=== PATIENT | male | born 1955 | race Caucasian/White ===

== ENCOUNTER 2020-05-22 11:43 | Inpatient (IN) | payer BC ==
[~2020-05-22 11:43] MED LIST: Iopamidol-370 76% 500 ML 1 ML ONE
[2020-05-22] MEDS ORDERED: Dexamethasone 4 mg/ml Vial ONE (11:56)
[2020-05-22] MEDS ORDERED: Aspirin Chewable 81 MG TAB ONE (11:56)
[2020-05-22] MEDS ORDERED: Ondansetron PF 4 MG/2 ML Vial IVP PRN ×2 (12:00→15:07)
[2020-05-22] MEDS ORDERED: Sodium Chloride 0.9% 1,000 ML IV SCH (12:00)
[2020-05-22] MEDS ORDERED: Ondansetron ODT 4 MG TAB SL PRN (12:00)
--- NOTE | 2020-05-22 12:22 | RAD ---
EXAM: CHEST ONE VIEW HISTORY: Covid positive. Shortness of breath. COMPARISON: 03/27/2012 FINDINGS: Cardiac silhouette is magnified by projection. There are parenchymal airspace opacities seen througho ut the lungs bilaterally greater on the right in a pattern most compatible with Covid pneumonia. No pleural effusion is seen. Mild degenerative changes are present in the spine similar to prior study. IMPRESSION: Covid pneumonia.
[2020-05-22 12:33] LABS: ALT (SGPT) 39 U/L (8-55); AST (SGOT) 29 U/L (5-34); Alkaline Phosphatase 92 U/L (40-110); Anion Gap 17 mmol/L (10-20); BUN (Urea Nitrogen) 15 mg/dL (8.4-25.7); Bilirubin, Total 0.6 mg/dL (0.2-1.2); CK (CPK) 42 U/L (30-200); Calc. Creatinine Clearance 0 mL/min (70-130); Calcium 8.3 mg/dL (7.8-10.44); Carbon Dioxide 23 mmol/L (23-31); Chloride 105 mmol/L (98-107); Globulin 3.5 g/dL (2.4-3.5); Glucose 128 mg/dL (80-115); Lipase 30 U/L (8-78); Potassium 3.5 mmol/L (3.5-5.1); Protein, Total 6.5 g/dL (5.8-8.1); Sodium 141 mmol/L (136-145)
[2020-05-22 12:41] LABS: #Eosinphils 0.4 thou/uL (0.0-0.7); #Lymphocytes 1.5 thou/uL (1.20-3.40); #Monocytes 0.6 thou/uL (0.11-0.59); #Neutrophils 7.8 thou/uL (1.40-6.50); %Eosinophils 3.4 % (0.0-10.0); %Lymphocytes 14.6 % (21.0-51.0); %Neutrophils 75.9 % (42.0-75.0); Hemoglobin 13.8 g/dL (14.0-18.0); Mean Corpuscular HGB CONC 33.8 g/dL (32.0-36.0); Mean Corpuscular Hemoglobin 29.9 pg (27.0-31.0); Mean Corpuscular Volume 88.4 fL (78.0-98.0); Mean Platelet Volume 6.2 fL (7.4-10.4); Platelet Count 398 thou/uL (130-400); RBC Distribution Width 12.2 % (11.5-14.5); Red Blood Cell (RBC) Count 4.61 mill/uL (4.70-6.10); White Blood Cell (WBC) Count 10.2 thou/uL (4.8-10.8)
[2020-05-22] MEDS ORDERED: cefTRIAXone\\ROCEPHIN 2 GM VIAL ONE (12:59)
--- NOTE | 2020-05-22 13:24 | CT ---
Exam: CT angiogram of the chest HISTORY: COVID positive patient. Shortness of breath. COMPARISON: None TECHNIQUE: CT angiogram of the chest is performed in the axial plane. Three-dimensional reformatted i mages are submitted for interpretation FINDINGS: Mediastinum: No mass, lymphadenopathy or hematoma. HEART: Normal size. No significant pericardial fluid. Aorta: No aneurysm or dissection Upper solid abdominal viscera: No abnormality enhancement. Trachea and central bronchi: Patent Pleural spaces: No effusion Lung parenchyma: Peripheral groundglass opacities, in keeping with patient's positive COVID status. M ulti lobar COVID pneumonia. Pneumothorax: None Osseous structures: No lytic or blastic lesions Pulmonary arteries: Adequate contrast opacification pulmonary arterial system to the level of lobar a rteries. Evaluation the segmental and subsegmental arteries limited due to patient motion. No filling defect to suggest pulmonary embolism IMPRESSION: 1. Multi lobar COVID pneumonia 2. No evidence of pulmonary artery embolism to the level of the lobar arteries.
--- NOTE | 2020-05-22 13:25 | PDOC.HHP ---
Hospitalist HPI - History of Present Illness Shortness of breath History of Present Illness: Patient reports that his symptoms started on May 11, initially he was having congestion in his chest and nose, he also lost taste and smell sensation, he did not have any sore throat, he did not have any significant runny nose, he had subsequently fever which lasted for couple of days only, he did COVID-19 test on May 14 which came back positive, he was taking vitamin supplementation and symptomatic treatment, for last 2 to 3 days his symptoms gotten worse with increasing shortness of breath and cough, he decided to come to emergency room because he was not feeling good, when he arrived to emergency room he was hypoxic with a saturation of 85%, he was tachypneic and tachycardic, he had elevated D-dimer and that is why CT angio was done which was negative, patient was requiring high flow oxygen. ED Course: VITAL SIGNS MonMay 22, 2020 11:44 KATHY Castañeda Denna BP: 122/74, Pulse: 117, Resp: 26, O2 sat: 85 on (Room Air), Time: 05/22/2020 11:44. VITAL SIGNS MonMay 22, 2020 12:20 Jase, RESP., Aliyah O2 sat: 98, Time: 05/22/2020 12:20. Rocephin 2 g, azithromycin 500 mg, Lovenox 1 mg/kg, aspirin 324 mg, dexamethasone 10 mg, IV fluid 1 LPatient has received Hospitalist ROS - Review of Systems Constitutional: reports: fever, chills, weakness, malaise Eyes: denies: pain, vision change, conjunctivae inflammation, eyelid inflammation, redness, other ENT: reports: nose congestion. denies: ear pain, ear discharge, nose pain, nose discharge, mouth pain, mouth swelling, throat pain, throat swelling, other Respiratory: reports: cough, shortness of breath, SOB with excertion Cardiovascular: denies: chest pain, palpitations, orthopnea, paroxysmal noc. dyspnea, edema, light headedness, other Gastrointestinal: denies: nausea, vomiting, abdominal pain, diarrhea, constipation, melena, hematochezia, other Genitourinary: denies: dysuria, frequency, incontinence, hematuria, retention, other Musculoskeletal: denies: neck pain, shoulder pain, arm pain, back pain, hand pain, leg pain, foot pain, other Skin: denies: rash, lesions, sina, bruising, other Neurological: denies: weakness, numbness, incoordination, change in speech, confusion, seizures, other - Medication Medications: Resuscitation Status - Order Detail: 05/22/20 13:16 Resuscitation Status Routine Resuscitation Status: FULL: Full Resuscitation Allergy-no known drug allergy Home medication-patient is not able to recall name of medication, will review later Hospitalist History - Past Medical History Other Medical History: Hyperlipidemia - Past Surgical History Other Surgical History: Appendicectomy Esophageal dilatation for esophageal stricture Past psychiatric history reviewed and negative - Family History Other Family History: No strong family history of premature coronary artery disease stroke or cancer - Social History Other Social History: Patient lives at home, no smoking, occasional alcohol, no drug abuse - Exam General Appearance: NAD, awake alert Eye: PERRL, anicteric sclera ENT: normocephalic atraumatic, no oropharyngeal lesions Neck: supple, symmetric, no JVD, no thyromegaly Heart: RRR, no murmur, no gallops, no rubs Respiratory: no tachypnea Respiratory - other findings: Bilateral coarse breath sound, basal rales noted Gastrointestinal: soft, non-tender, non-distended, normal bowel sounds Extremities: no cyanosis, no clubbing, no edema Skin: normal turgor, no lesions Neurological: no focal deficits Musculoskeletal: normal tone, normal strength Psychiatric: normal affect, normal behavior, A&O x 3 Hospitalist Results - Labs Result Diagrams: 05/22/20 12:30 05/22/20 12:00 Lab results: WBC 10.2 thou/uL (4.8-10.8) 05/22/20 12:30 Hgb 13.8 g/dL (14.0-18.0) L 05/22/20 12:30 Hct 40.8 % (42.0-52.0) L 05/22/20 12:30 MCV 88.4 fL (78.0-98.0) 05/22/20 12:30 Plt Count 398 thou/uL (130-400) 05/22/20 12:30 Neutrophils % 75.9 % (42.0-75.0) H 05/22/20 12:30 Sodium 141 mmol/L (136-145) 05/22/20 12:00 Potassium 3.5 mmol/L (3.5-5.1) 05/22/20 12:00 Chloride 105 mmol/L (98-107) 05/22/20 12:00 Carbon Dioxide 23 mmol/L (23-31) 05/22/20 12:00 BUN 15 mg/dL (8.4-25.7) 05/22/20 12:00 Creatinine 0.77 mg/dL (0.7-1.3) 05/22/20 12:00 Glucose 128 mg/dL (80-115) H 05/22/20 12:00 Calcium 8.3 mg/dL (7.8-10.44) 05/22/20 12:00 Total Bilirubin 0.6 mg/dL (0.2-1.2) 05/22/20 12:00 AST 29 U/L (5-34) 05/22/20 12:00 ALT 39 U/L (8-55) 05/22/20 12:00 Alkaline Phosphatase 92 U/L (40-110) 05/22/20 12:00 Creatine Kinase 42 U/L (30-200) 05/22/20 12:00 Troponin I Less than 0.010 ng/mL (< 0.028) 05/22/20 12:00 B-Natriuretic Peptide 40.9 pg/mL (0-100) 05/22/20 12:00 Serum Total Protein 6.5 g/dL (5.8-8.1) 05/22/20 12:00 Albumin 3.0 g/dL (3.4-4.8) L 05/22/20 12:00 Lipase 30 U/L (8-78) 05/22/20 12:00 - EKG Interpretation EK LEAD EKG INTERPRETATION Sinus tach pulse 107 VT 176 no STEMI. - Radiology Interpretation Chest x-ray Status: image reviewed by me Additional Comment: Chest x-ray showing bilateral parenchymal airspace opacity consistent with Covid pneumonia, CT scan - chest Status: image reviewed by me Additional Comment: Based on my review no evidence of pulmonary embolism, consistent with Covid pneumonia Hospitalist H&P A/P - Problem (1) Acute respiratory failure due to COVID-19 Code(s): U07.1 - COVID-19; J96.00 - ACUTE RESPIRATORY FAILURE, UNSP W HYPOXIA OR HYPERCAPNIA Status: Acute (2) Pneumonia due to 2019 novel coronavirus Code(s): U07.1 - COVID-19; J12.82 - PNEUMONIA DUE TO CORONAVIRUS DISEASE 2019 Status: Acute - Plan Plan: Admission to medical floor Continue oxygen to keep saturation above 92% Start vitamin C 1 g p.o. daily, zinc sulfate 220 mg daily, vitamin D3 1000 unit daily We will ask pharmacy to run criteria for remdesivir Continue dexamethasone 6 mg IV daily Continue empiric Rocephin 1 g IV and azithromycin 500 mg IV daily Symptomatic treatment for cough and shortness of breath Monitor inflammatory markers Monitor for any deterioration Isolation DVT prophylaxis Lovenox 40 mg subcu twice daily GI prophylaxis Protonix 40 mg p.o. daily CODE STATUS patient is full code Disposition plan based on clinical course.
[2020-05-22] MEDS ORDERED: Enoxaparin Sodium 100 MG/ML SYRINGE ONE (13:31)
[2020-05-22] MEDS ORDERED: Azithromycin 500 MG VIAL ONE (13:32)
[2020-05-22] MEDS ORDERED: Calcium Carbonate 500 MG ChewTAB PO PRN (15:07)
[2020-05-22] MEDS ORDERED: Bisacodyl 5 MG TAB PO PRN (15:07)
[2020-05-22] MEDS ORDERED: Senokot S 8.6-50 MG TAB PO PRN (15:07)
[2020-05-22] MEDS ORDERED: Zolpidem Tartrate 5 MG TAB PO PRN (15:07)
[2020-05-22] MEDS ORDERED: Sodium Chloride 0.65% Nasal 44 ML BOT EA NARE PRN (15:07)
[2020-05-22] MEDS ORDERED: Acetaminophen 325 MG TAB PO PRN (15:07)
[2020-05-22] MEDS ORDERED: GUAIFENESIN SF SOLN 200 MG/10 ML UDCUP PO PRN (15:07)
[2020-05-22] MEDS ORDERED: Cepastat Lozenges 1 LOZ PO PRN (15:07)
[2020-05-22] MEDS ORDERED: Albuterol Sulfate 2.5 mg/3 ml Neb NEB PRN (15:07)
[2020-05-22] MEDS ORDERED: Loratadine 10 MG TAB PO PRN (15:07)
[2020-05-22] MEDS ORDERED: HYDROcodone/Acetaminophen 5/325 mg Tablet PO PRN (15:07)
[2020-05-22] MEDS ORDERED: Ondansetron ODT 4 MG TAB PO PRN (15:07)
[2020-05-22] MEDS ORDERED: Loperamide HCl 2 MG CAP PO PRN (15:07)
[2020-05-22] MEDS ORDERED: hydrALAZINE 20 MG/ML VIAL SLOW IVP PRN (15:07)
[2020-05-22 15:16] VITALS: BMI 31.1
[2020-05-22] MEDS ORDERED: Albuterol 200 PUFF (6.7GM INHALER) INH PRN (15:50)
[2020-05-22 16:10] LABS: Troponin I Less than 0.010 ng/mL (< 0.028)
[2020-05-22 19:47] LABS: Troponin I Less than 0.010 ng/mL (< 0.028)
[2020-05-22] MEDS: Enoxaparin Sodium 40 MG/0.4 ML SYRINGE SC SCH (20:45)
[2020-05-22] MEDS ORDERED: Dexamethasone 4 mg/ml Vial SLOW IVP SCH (23:59)
[2020-05-23 05:51] LABS: Bacteria/HPF None Seen HPF (None Seen); Bilirubin Negative (Negative); Blood, Urine Negative (Negative); Clarity Clear (Clear); Glucose, Urine (Dipstick) 30 mg/dL (Negative); Ketone, Urine Negative (Negative); Leukocyte Negative Leu/uL (Negative); Nitrite Negative (Negative); Protein, Urine (Dipstick) Negative (Neg-Trace); RBC/HPF 0-3 HPF (0-3); Specific Gravity, Urine 1.022 (1.002-1.036); Squamous Epithelial None Seen HPF (0-3); Urobilinogen Normal mg/dL (Less than 2); WBC/HPF 0-3 HPF (0-3); pH, Urine 6.5 (5.0-9.0)
[2020-05-23 07:05] LABS: #Eosinphils 0.3 thou/uL (0.0-0.7); #Lymphocytes 1.2 thou/uL (1.20-3.40); #Monocytes 0.3 thou/uL (0.11-0.59); #Neutrophils 7.4 thou/uL (1.40-6.50); %Eosinophils 3.2 % (0.0-10.0); %Lymphocytes 13.3 % (21.0-51.0); %Monocytes 3.5 % (0.0-10.0); %Neutrophils 79.9 % (42.0-75.0); Hemoglobin 13.7 g/dL (14.0-18.0); Mean Corpuscular HGB CONC 34.1 g/dL (32.0-36.0); Mean Corpuscular Hemoglobin 29.8 pg (27.0-31.0); Mean Corpuscular Volume 87.4 fL (78.0-98.0); Mean Platelet Volume 6.5 fL (7.4-10.4); Platelet Count 438 thou/uL (130-400); RBC Distribution Width 12.2 % (11.5-14.5); Red Blood Cell (RBC) Count 4.59 mill/uL (4.70-6.10); White Blood Cell (WBC) Count 9.3 thou/uL (4.8-10.8)
[2020-05-23 07:30] LABS: ALT (SGPT) 36 U/L (8-55); AST (SGOT) 20 U/L (5-34); Albumin 2.9 g/dL (3.4-4.8); Alkaline Phosphatase 79 U/L (40-110); Anion Gap 15 mmol/L (10-20); BUN (Urea Nitrogen) 17 mg/dL (8.4-25.7); Bilirubin, Total 0.4 mg/dL (0.2-1.2); Calc. Creatinine Clearance 133 mL/min (70-130); Calcium 8.2 mg/dL (7.8-10.44); Carbon Dioxide 22 mmol/L (23-31); Chloride 107 mmol/L (98-107); Globulin 3.3 g/dL (2.4-3.5); Glucose 159 mg/dL (80-115); Potassium 4.4 mmol/L (3.5-5.1); Protein, Total 6.2 g/dL (5.8-8.1); Sodium 140 mmol/L (136-145)
[2020-05-23] MEDS: Ascorbic Acid 500 mg Chewable Tablet PO SCH (09:50)
[2020-05-23] MEDS: Cholecalciferol 1,000 UNITS (25 MCG) TAB PO SCH (09:50)
[2020-05-23] MEDS: Gemfibrozil 600 MG TAB PO SCH (09:50)
[2020-05-23] MEDS: Enoxaparin Sodium 40 MG/0.4 ML SYRINGE SC SCH ×2 (09:50→20:56)
[2020-05-23] MEDS: Zinc Sulfate 220 MG CAP PO SCH (09:50)
--- NOTE | 2020-05-23 10:23 | PDOC.HOSPP ---
- Subjective Encounter Date: 05/23/20 Encounter Time: 09:00 Subjective: Patient seen and examined bedside today, no overnight event, patient has no new complaint, patient is on high flow oxygen, - Objective Vital Signs & Weight: Vital Signs (12 hours) Temp Pulse Resp BP Pulse Ox 05/23/20 07:13 97.7 F 79 18 129/77 94 L 05/23/20 04:44 97.9 F 81 18 124/78 95 05/23/20 00:17 97.8 F 78 20 117/75 96 Weight Weight 220 lb Result Diagrams: 05/23/20 06:30 05/23/20 06:30 Hospitalist ROS - Review of Systems Constitutional: reports: weakness. denies: fever, chills, sweats, malaise, other ENT: denies: ear pain, ear discharge, nose pain, nose discharge, nose congestion, mouth pain, mouth swelling, throat pain, throat swelling, other Respiratory: reports: cough, shortness of breath, SOB with excertion. denies: dry, hemoptysis, pleuritic pain, sputum, wheezing, other Cardiovascular: denies: chest pain, palpitations, orthopnea, paroxysmal noc. dyspnea, edema, light headedness, other Gastrointestinal: denies: nausea, vomiting, abdominal pain, diarrhea, constipation, melena, hematochezia, other Genitourinary: denies: dysuria, frequency, incontinence, hematuria, retention, other Musculoskeletal: denies: neck pain, shoulder pain, arm pain, back pain, hand pain, leg pain, foot pain, other Skin: denies: rash, lesions, sina, bruising, other - Medication Medications: Active Medications Generic Name Dose Route Start Last Admin Trade Name J Carlosq PRN Reason Stop Dose Admin Ascorbic Acid 1,000 mg 05/23/20 09:00 05/23/20 09:50 Ascorbic Acid 500 Mg Chewable Tablet PO 1,000 mg DAILY CAROLANN Administration Cholecalciferol 1,000 units 05/23/20 09:00 05/23/20 09:50 Cholecalciferol 1,000 Units (25 Mcg) Tab PO 1,000 units DAILY CAROLANN Administration Enoxaparin Sodium 40 mg 05/22/20 21:00 05/23/20 09:50 Enoxaparin Sodium 40 Mg/0.4 Ml Syringe SC 40 mg 0900,2100 CAROLANN Administration Gemfibrozil 600 mg 05/23/20 09:00 05/23/20 09:50 Gemfibrozil 600 Mg Tab PO 600 mg DAILY CAROLANN Administration Pantoprazole Sodium 40 mg 05/23/20 09:00 05/23/20 09:50 Pantoprazole 40 Mg Tab PO 40 mg DAILY CAROLANN Administration Zinc Sulfate 220 mg 05/23/20 09:00 05/23/20 09:50 Zinc Sulfate 220 Mg Cap PO 220 mg DAILY CAROLANN Administration - Exam General Appearance: NAD, awake alert Eye: PERRL, anicteric sclera ENT: normocephalic atraumatic, no oropharyngeal lesions Neck: supple, symmetric, no JVD, no thyromegaly Heart: RRR, no murmur, no gallops, no rubs Respiratory - other findings: Bilateral coarse breath sounds with coarse rales Gastrointestinal: soft, non-tender, non-distended, normal bowel sounds Gastrointestinal - other findings: Obesity noted Extremities: no cyanosis, no clubbing, no edema Skin: normal turgor, no lesions Neurological: no focal deficits Musculoskeletal: normal tone, normal strength, no muscle wasting Psychiatric: normal affect, normal behavior, A&O x 3 Hosp A/P (1) Acute respiratory failure due to COVID-19 Code(s): U07.1 - COVID-19; J96.00 - ACUTE RESPIRATORY FAILURE, UNSP W HYPOXIA OR HYPERCAPNIA Status: Acute (2) Pneumonia due to 2019 novel coronavirus Code(s): U07.1 - COVID-19; J12.82 - PNEUMONIA DUE TO CORONAVIRUS DISEASE 2019 Status: Acute (3) Obesity (BMI 30.0-34.9) Code(s): E66.9 - OBESITY, UNSPECIFIED Status: Chronic (4) Gastroesophageal reflux disease Code(s): K21.9 - GASTRO-ESOPHAGEAL REFLUX DISEASE WITHOUT ESOPHAGITIS Status: Chronic Qualifiers: Esophagitis presence: without esophagitis Qualified Code(s): K21.9 - Gastro-esophageal reflux disease without esophagitis - Plan old records reviewed/req, continue antibiotics, respiratory therapy, DVT proph w/lovenox Currently patient is on empiric Rocephin and azithromycin Continue dexamethasone Continue high flow oxygen and wean off as tolerated Continue vitamin supplementation, continue medication for symptomatic treatment I have discussed with the patient that because of onset of symptoms he is not a candidate for remdesivir therapy and I have discussed with him about convalescent plasma and patient wanted to try something for coronavirus infection treatment, today we will give him convalescent plasma Will monitor inflammatory markers Monitor for any deterioration.
[2020-05-23] MEDS: cefTRIAXone\\ROCEPHIN 1 GM in Sodium Chloride 0.9% 100 ML IVPB SCH (13:50)
[2020-05-23] MEDS: Dexamethasone 4 mg/ml Vial SLOW IVP SCH (13:52)
[2020-05-23] MEDS: Azithromycin 500 MG in Sodium Chloride 0.9% 250 ML 250 ML IVPB SCH (17:01)
[2020-05-24] MEDS: Zinc Sulfate 220 MG CAP PO SCH (09:09)
[2020-05-24] MEDS: Gemfibrozil 600 MG TAB PO SCH (09:10)
[2020-05-24] MEDS: Enoxaparin Sodium 40 MG/0.4 ML SYRINGE SC SCH ×2 (09:10→20:37)
[2020-05-24] MEDS: Cholecalciferol 1,000 UNITS (25 MCG) TAB PO SCH (09:10)
[2020-05-24] MEDS: Ascorbic Acid 500 mg Chewable Tablet PO SCH (09:11)
--- NOTE | 2020-05-24 11:10 | PDOC.HOSPP ---
- Subjective Encounter Date: 05/24/20 Encounter Time: 09:10 Subjective: Patient seen and examined bedside today, patient has tolerated plasma therapy without any side effects, patient is still requiring high flow oxygen, - Objective Vital Signs & Weight: Vital Signs (12 hours) Temp Pulse Resp BP Pulse Ox 05/24/20 07:21 98.2 F 81 20 116/77 96 05/24/20 03:58 98.0 F 72 18 124/75 93 L Weight Weight 220 lb I&O: 05/23/20 05/24/20 05/25/20 06:59 06:59 06:59 Intake Total 530 Balance 530 Result Diagrams: 05/23/20 06:30 05/23/20 06:30 Hospitalist ROS - Review of Systems Constitutional: reports: weakness. denies: fever, chills, sweats, malaise, other ENT: denies: ear pain, ear discharge, nose pain, nose discharge, nose congestion, mouth pain, mouth swelling, throat pain, throat swelling, other Respiratory: reports: shortness of breath, SOB with excertion. denies: cough, dry, hemoptysis, pleuritic pain, sputum, wheezing, other Cardiovascular: denies: chest pain, palpitations, orthopnea, paroxysmal noc. dyspnea, edema, light headedness, other Gastrointestinal: denies: nausea, vomiting, abdominal pain, diarrhea, constipati on, melena, hematochezia, other Genitourinary: denies: dysuria, frequency, incontinence, hematuria, retention, other Musculoskeletal: denies: neck pain, shoulder pain, arm pain, back pain, hand pain, leg pain, foot pain, other Skin: denies: rash, lesions, sina, bruising, other - Medication Medications: Active Medications Generic Name Dose Route Start Last Admin Trade Name Freq PRN Reason Stop Dose Admin Ascorbic Acid 1,000 mg 05/23/20 09:00 05/24/20 09:11 Ascorbic Acid 500 Mg Chewable Tablet PO 1,000 mg DAILY CAROLANN Administration Cholecalciferol 1,000 units 05/23/20 09:00 05/24/20 09:10 Cholecalciferol 1,000 Units (25 Mcg) Tab PO 1,000 units DAILY CAROLANN Administration Dexamethasone 6 mg 05/23/20 12:00 05/23/20 13:52 Dexamethasone 4 Mg/Ml Vial SLOW IVP 06/01/20 12:01 6 mg 1200 CAROLANN Administration Enoxaparin Sodium 40 mg 05/22/20 21:00 05/24/20 09:10 Enoxaparin Sodium 40 Mg/0.4 Ml Syringe SC 40 mg 0900,2100 CAROLANN Administration Gemfibrozil 600 mg 05/23/20 09:00 05/24/20 09:10 Gemfibrozil 600 Mg Tab PO 600 mg DAILY CAROLANN Administration Azithromycin 500 mg/ Sodium 250 mls @ 250 mls/hr 05/23/20 14:00 05/23/20 17:01 Chloride IVPB 05/25/20 14:59 250 mls 1400 CAROLANN Administration Ceftriaxone Sodium 1 gm/ 100 mls @ 200 mls/hr 05/23/20 13:00 05/23/20 13:50 Sodium Chloride IVPB 05/27/20 13:29 100 mls 1300 CAROLANN Administration Pantoprazole Sodium 40 mg 05/23/20 09:00 05/24/20 09:10 Pantoprazole 40 Mg Tab PO 40 mg DAILY CAROLANN Administration Zinc Sulfate 220 mg 05/23/20 09:00 05/24/20 09:09 Zinc Sulfate 220 Mg Cap PO 220 mg DAILY CAROLANN Administration - Exam General Appearance: NAD, awake alert Eye: PERRL, anicteric sclera ENT: normocephalic atraumatic, no oropharyngeal lesions Neck: supple, symmetric, no JVD, no thyromegaly Heart: RRR, no murmur, no gallops, no rubs Respiratory - other findings: Bilateral lower part coarse breath sound, Gastrointestinal: soft, non-tender, non-distended, normal bowel sounds Extremities: no cyanosis, no clubbing, no edema Skin: normal turgor, no lesions Neurological: no focal deficits Musculoskeletal: normal tone, normal strength, no muscle wasting Psychiatric: normal affect, normal behavior, A&O x 3 Hosp A/P (1) Acute respiratory failure due to COVID-19 Code(s): U07.1 - COVID-19; J96.00 - ACUTE RESPIRATORY FAILURE, UNSP W HYPOXIA OR HYPERCAPNIA Status: Acute (2) Pneumonia due to 2019 novel coronavirus Code(s): U07.1 - COVID-19; J12.82 - PNEUMONIA DUE TO CORONAVIRUS DISEASE 2019 Status: Acute (3) Obesity (BMI 30.0-34.9) Code(s): E66.9 - OBESITY, UNSPECIFIED Status: Chronic (4) Gastroesophageal reflux disease Code(s): K21.9 - GASTRO-ESOPHAGEAL REFLUX DISEASE WITHOUT ESOPHAGITIS Status: Chronic Qualifiers: Esophagitis presence: without esophagitis Qualified Code(s): K21.9 - Gastro-esophageal reflux disease without esophagitis - Plan old records reviewed/req, continue antibiotics, respiratory therapy, DVT proph w/lovenox Currently patient is on empiric Rocephin and azithromycin Continue dexamethasone Continue high flow oxygen and wean off as tolerated Continue vitamin supplementation, continue medication for symptomatic treatment
[2020-05-24] MEDS: cefTRIAXone\\ROCEPHIN 1 GM in Sodium Chloride 0.9% 100 ML IVPB SCH (12:14)
[2020-05-24] MEDS: Dexamethasone 4 mg/ml Vial SLOW IVP SCH (12:15)
[2020-05-24] MEDS: Azithromycin 500 MG in Sodium Chloride 0.9% 250 ML 250 ML IVPB SCH (15:10)
[2020-05-25] MEDS: Ascorbic Acid 500 mg Chewable Tablet PO SCH (07:46)
[2020-05-25] MEDS: Zinc Sulfate 220 MG CAP PO SCH (07:46)
[2020-05-25] MEDS: Enoxaparin Sodium 40 MG/0.4 ML SYRINGE SC SCH ×2 (07:46→21:09)
[2020-05-25] MEDS: Cholecalciferol 1,000 UNITS (25 MCG) TAB PO SCH (07:46)
[2020-05-25] MEDS: Gemfibrozil 600 MG TAB PO SCH (07:46)
--- NOTE | 2020-05-25 11:36 | PDOC.HOSPP ---
- Subjective Encounter Date: 05/25/20 Encounter Time: 08:30 Subjective: Patient seen and examined bedside today, patient has some clinical improvement, he is currently on 4 L nasal cannula oxygen, he has no new complaint, no fever, - Objective Vital Signs & Weight: Vital Signs (12 hours) Temp Pulse Resp BP Pulse Ox 05/25/20 08:00 94 L 05/25/20 07:10 98.0 F 77 20 121/72 94 L Weight Weight 220 lb I&O: 05/24/20 05/25/20 05/26/20 06:59 06:59 06:59 Intake Total 530 240 Balance 530 240 Result Diagrams: 05/23/20 06:30 05/23/20 06:30 Hospitalist ROS - Review of Systems Constitutional: denies: fever, chills, sweats, weakness, malaise, other Respiratory: reports: SOB with excertion. denies: cough, dry, shortness of breath, hemoptysis, pleuritic pain, sputum, wheezing, other Cardiovascular: denies: chest pain, palpitations, orthopnea, paroxysmal noc. dyspnea, edema, light headedness, other Gastrointestinal: denies: nausea, vomiting, abdominal pain, diarrhea, constipation, melena, hematochezia, other Genitourinary: denies: dysuria, frequency, incontinence, hematuria, retention, other Musculoskeletal: denies: neck pain, shoulder pain, arm pain, back pain, hand pain, leg pain, foot pain, other Skin: denies: rash, lesions, sina, bruising, other - Medication Medications: Active Medications Generic Name Dose Route Start Last Admin Trade Name Laine PRN Reason Stop Dose Admin Ascorbic Acid 1,000 mg 05/23/20 09:00 05/25/20 07:46 Ascorbic Acid 500 Mg Chewable Tablet PO 1,000 mg DAILY CAROLANN Administration Cholecalciferol 1,000 units 05/23/20 09:00 05/25/20 07:46 Cholecalciferol 1,000 Units (25 Mcg) Tab PO 1,000 units DAILY CAROLANN Administration Dexamethasone 6 mg 05/23/20 12:00 05/24/20 12:15 Dexamethasone 4 Mg/Ml Vial SLOW IVP 06/01/20 12:01 6 mg 1200 CAROLANN Administration Enoxaparin Sodium 40 mg 05/22/20 21:00 05/25/20 07:46 Enoxaparin Sodium 40 Mg/0.4 Ml Syringe SC 40 mg 0900,2100 CAROLANN Administration Gemfibrozil 600 mg 05/23/20 09:00 05/25/20 07:46 Gemfibrozil 600 Mg Tab PO 600 mg DAILY CAROLANN Administration Azithromycin 500 mg/ Sodium 250 mls @ 250 mls/hr 05/23/20 14:00 05/24/20 15:10 Chloride IVPB 05/25/20 14:59 250 mls 1400 CAROLANN Administration Ceftriaxone Sodium 1 gm/ 100 mls @ 200 mls/hr 05/23/20 13:00 05/24/20 12:14 Sodium Chloride IVPB 05/27/20 13:29 100 mls 1300 CAROLANN Administration Pantoprazole Sodium 40 mg 05/23/20 09:00 05/25/20 07:47 Pantoprazole 40 Mg Tab PO 40 mg DAILY CAROLANN Administration Zinc Sulfate 220 mg 05/23/20 09:00 05/25/20 07:46 Zinc Sulfate 220 Mg Cap PO 220 mg DAILY CAROLANN Administration - Exam General Appearance: NAD, awake alert Eye: PERRL, anicteric sclera ENT: normocephalic atraumatic, no oropharyngeal lesions Neck: supple, symmetric, no JVD, no thyromegaly Heart: RRR, no murmur, no gallops, no rubs Respiratory: no wheezes, no rales, no ronchi, no tachypnea Gastrointestinal: soft, non-tender, non-distended, normal bowel sounds Extremities: no cyanosis, no clubbing, no edema Skin: normal turgor, no lesions Neurological: no focal deficits Musculoskeletal: normal tone, normal strength Psychiatric: normal affect, normal behavior Hosp A/P (1) Acute respiratory failure due to COVID-19 Code(s): U07.1 - COVID-19; J96.00 - ACUTE RESPIRATORY FAILURE, UNSP W HYPOXIA OR HYPERCAPNIA Status: Acute (2) Pneumonia due to 2019 novel coronavirus Code(s): U07.1 - COVID-19; J12.82 - PNEUMONIA DUE TO CORONAVIRUS DISEASE 2019 Status: Acute (3) Obesity (BMI 30.0-34.9) Code(s): E66.9 - OBESITY, UNSPECIFIED Status: Chronic (4) Gastroesophageal reflux disease Code(s): K21.9 - GASTRO-ESOPHAGEAL REFLUX DISEASE WITHOUT ESOPHAGITIS Status: Chronic Qualifiers: Esophagitis presence: without esophagitis Qualified Code(s): K21.9 - Gastro-esophageal reflux disease without esophagitis - Plan old records reviewed/req, continue antibiotics, social services analyst, respiratory therapy, DVT proph w/lovenox Currently patient is on empiric Rocephin and azithromycin Continue dexamethasone Continue to wean off oxygen as tolerated, seems like patient will need home oxygen on discharge for short time, will consult ed case manager to arrange home oxygen Continue vitamin supplementation, continue medication for symptomatic treatment Expecting his discharge tomorrow if continues to improve, Ambulate as tolerated and monitor ambulatory oxygen saturation with and without oxygen
[2020-05-25] MEDS: Dexamethasone 4 mg/ml Vial SLOW IVP SCH (11:37)
[2020-05-25] MEDS: cefTRIAXone\\ROCEPHIN 1 GM in Sodium Chloride 0.9% 100 ML IVPB SCH (12:44)
[2020-05-25] MEDS: Azithromycin 500 MG in Sodium Chloride 0.9% 250 ML 250 ML IVPB SCH (14:28)
[2020-05-25] MEDS: Benzonatate 100 MG CAP PO PRN (21:42)
[2020-05-26] MEDS: Zinc Sulfate 220 MG CAP PO SCH (07:54)
[2020-05-26] MEDS: Gemfibrozil 600 MG TAB PO SCH (07:55)
[2020-05-26] MEDS: Cholecalciferol 1,000 UNITS (25 MCG) TAB PO SCH (07:55)
[2020-05-26] MEDS: Enoxaparin Sodium 40 MG/0.4 ML SYRINGE SC SCH (07:55)
[2020-05-26] MEDS: Ascorbic Acid 500 mg Chewable Tablet PO SCH (07:55)
[2020-05-26 08:07] VITALS: BP 100/66; TEMP 98.9
[2020-05-26] MEDS: Dexamethasone 4 mg/ml Vial SLOW IVP SCH (11:47)
[2020-05-26] MEDS: cefTRIAXone\\ROCEPHIN 1 GM in Sodium Chloride 0.9% 100 ML IVPB SCH (13:28)
--- NOTE | 2020-05-26 13:37 | PDOC.DS.DS ---
Provider - Provider Date of Admission: 05/22/20 13:02 Date of Discharge: 05/26/20 Admitting Provider: Erika Stiles MD Course - Hospital Course Hospital Course: History of Present Illness: Patient reports that his symptoms started on May 11, initially he was having congestion in his chest and nose, he also lost taste and smell sensation, he did not have any sore throat, he did not have any significant runny nose, he had subsequently fever which lasted for couple of days only, he did COVID-19 test on May 14 which came back positive, he was taking vitamin supplementation and symptomatic treatment, for last 2 to 3 days his symptoms gotten worse with increasing shortness of breath and cough, he decided to come to emergency room because he was not feeling good, when he arrived to emergency room he was hypoxic with a saturation of 85%, he was tachypneic and tachycardic, he had nicole vated D-dimer and that is why CT angio was done which was negative, patient was requiring high flow oxygen. ED Course: Rocephin 2 g, azithromycin 500 mg, Lovenox 1 mg/kg, aspirin 324 mg, dexamethasone 10 mg, IV fluid 1 L After admission patient was requiring high flow oxygen, subsequently patient oxygen saturations significantly improved and he was kept on nasal cannula oxygen, over next couple of days patient was maintaining saturation very well with the 3 L and Lasix, we arranged home oxygen for him before discharge, while in hospital we gave him empiric Rocephin and azithromycin, dexamethasone, we have also given him convalescent plasma. Patient was not candidate for remdesivir therapy based on symptoms onset, Patient is doing much better, his symptoms significantly improved, patient is medically stable for discharge today. Resuscitation Status: 05/22/20 13:16 Resuscitation Status Routine Resuscitation Status: FULL: Full Resuscitation - Labs Lab Results: 05/23/20 06:30 05/23/20 06:30 Abnormal Lab Results - Last 48 hrs 05/24/20 16:48: C-Reactive Protein 1.87 H 05/24/20 16:48: Ferritin 718.41 H 05/24/20 16:48: D-Dimer 1.49 H - Physical Exam Vitals: Vital Signs (12 hours) Temp Pulse Resp BP Pulse Ox 05/26/20 08:00 98.9 F 89 20 100/66 95 05/26/20 04:46 97.7 F 72 20 109/69 Weight Weight 220 lb Physical Exam: The patient was seen and examined on the day of discharge. General patient is currently alert and awake no acute distress Head normocephalic atraumatic Neck supple no JVD no meningeal signs of irritation Lungs clear to auscultation without any rhonchi rales Cardiac S1-S2 regular no murmur no gallop no rub Abdomen soft, bowel sound present, nontender nondistended no organomegaly no mass Extremity no edema Neurologic nonfocal examination Problem - Problem (1) Acute respiratory failure due to COVID-19 Code(s): U07.1 - COVID-19; J96.00 - ACUTE RESPIRATORY FAILURE, UNSP W HYPOXIA OR HYPERCAPNIA Status: Acute (2) Pneumonia due to 2019 novel coronavirus Code(s): U07.1 - COVID-19; J12.82 - PNEUMONIA DUE TO CORONAVIRUS DISEASE 2019 Status: Acute (3) Obesity (BMI 30.0-34.9) Code(s): E66.9 - OBESITY, UNSPECIFIED Status: Chronic (4) Gastroesophageal reflux disease Code(s): K21.9 - GASTRO-ESOPHAGEAL REFLUX DISEASE WITHOUT ESOPHAGITIS Status: Chronic Qualifiers: Esophagitis presence: without esophagitis Qualified Code(s): K21.9 - Gastro-esophageal reflux disease without esophagitis Plan - Discharge Medications Prescriptions: Cefdinir 300 mg PO Q12HR #10 capsule Dexamethasone 6 mg PO DAILY #6 tablet Pantoprazole [Protonix] 40 mg PO DAILY #7 tab Albuterol Sulfate [Proventil Hfa] 2 puff INH Q6H PRN #1 aer PRN Reason: Dyspnea/Wheezing/Sob Benzonatate [Tessalon] 100 mg PO Q6H PRN #30 cap PRN Reason: Cough Ascorbic Acid [Vitamin C] 1,000 mg PO DAILY #30 tab Cholecalciferol [Vitamin D3] 1,000 units PO DAILY #14 tab Zinc Sulfate 220 mg PO DAILY #14 cap Home Medications: Medication Instructions Recorded Confirmed Type Gemfibrozil [Lopid] 1 tab PO DAILY 05/22/20 05/22/20 History RABEprazole Sodium [Rabeprazole 20 mg PO DAILY 05/22/20 05/22/20 History Sodium] Albuterol Sulfate [Proventil Hfa] 2 puff INH Q6H PRN #1 aer 05/26/20 Rx Ascorbic Acid [Vitamin C] 1,000 mg PO DAILY #30 tab 05/26/20 Rx Benzonatate [Tessalon] 100 mg PO Q6H PRN #30 cap 05/26/20 Rx Cefdinir 300 mg PO Q12HR #10 capsule 05/26/20 Rx Cholecalciferol [Vitamin D3] 1,000 units PO DAILY #14 tab 05/26/20 Rx Dexamethasone 6 mg PO DAILY #6 tablet 05/26/20 Rx Pantoprazole [Protonix] 40 mg PO DAILY #7 tab 05/26/20 Rx Zinc Sulfate 220 mg PO DAILY #14 cap 05/26/20 Rx Allergies: No Known Allergies Allergy (Verified 05/22/20 15:17) - Discharge Instructions Activity:: Activity as Tolerated Nourishment:: Heart Healthy Diet Therapies:: Not Applicable Equipment/Supplies:: Oxygen IV Therapy:: Not Applicable - Follow up Plan Referrals: [facility] [Outside] Disposition: HOME Quality - Care Measures CORE MEASURES:: N/A
[2020-05-26] MEDS: Benzonatate 100 MG CAP PO PRN (14:28)
--- NOTE | 2020-06-13 22:46 | EKG ---
Test Reason : DYSPNEA Blood Pressure : / mmHG Vent. Rate : 107 BPM Atrial Rate : 107 BPM P-R Int : 176 ms QRS Dur : 094 ms QT Int : 360 ms P-R-T Axes : 017 -15 036 degrees QTc Int : 480 ms Sinus tachycardia Possible Left atrial enlargement Borderline ECG Confirmed by BEATRICE SAWYER, BRENT ([id number]), newspaper editor managing ISADORA ROMANO ([id number]) on 06/13/2020 10:46:49 PM Referred By: Confirmed By:BRENT BARRON MD
== END 2020-05-26 15:53 | disposition home or self-care (01) | DRG 177 ==
LOC: ERS 11:43 → SUATTDRO 11:43 → T4-B 13:02
PROVIDERS: ADMIT Internal Medicine; ATTEND Internal Medicine
PROC: 8E0ZXY6 Isolation (ICD-10-PCS; principal; 2020-05-22)
PROC: XW13325 Transfusion of Convalescent Plasma (Nonautologous) into Peripheral Vein, Percutaneous Approach, New Technology Group 5 (ICD-10-PCS; 2020-05-23)
DX: U07.1 COVID-19 (principal); J12.82 Pneumonia due to coronavirus disease 2019; J96.01 Acute respiratory failure with hypoxia; E66.9 Obesity, unspecified; K21.9 Gastro-esophageal reflux disease without esophagitis; E78.5 Hyperlipidemia, unspecified; Z90.49 Acquired absence of other specified parts of digestive tract; Z68.31 Body mass index [BMI] 31.0-31.9, adult; Z79.52 Long term (current) use of systemic steroids; Z79.899 Other long term (current) drug therapy
CPT/HCPCS: 36415; 36430; 71045; 71275; 80053; 81001; 82550; 82728; 83690; 83880; 84484; 85025; 85379; 86140; 86850; 86900; 86901; 93005; 96365; 96368; 96372; 96375; J0456; J0696; J1100; J1650; J3490; J7050; P9017; Q9967